=== PATIENT | female | born 1955 | race Caucasian/White ===

== ENCOUNTER 2024-05-20 | Outpatient (CLI) | payer MEDICARE, MEDICAID | END 2024-05-20 23:59 | disposition critical access hospital (66) | LOC: EMS | DX: R42 Dizziness and giddiness (principal); R44.1 Visual hallucinations; I95.9 Hypotension, unspecified | CPT/HCPCS: A0425; A0429 ==

== ENCOUNTER 2024-05-20 00:21 | Emergency (ER) | payer MEDICARE, MEDICAID ==
[2024-05-20 00:46] LABS: BASOPHILS % (AUTO) 0.5 %; EOSINOPHILS # (AUTO) 0.1 10^3/uL (0.0-0.7); EOSINOPHILS % (AUTO) 0.8 %; HCT - HEMATOCRIT 28.5 % (37.0-47.0); HGB - HEMOGLOBIN 8.8 g/dL (12.0-16.0); LYMPHOCYTES # (AUTO) 2.6 10^3/uL (1.5-3.5); LYMPHOCYTES % (AUTO) 39.8 %; MEAN CORPUSCULAR HEMOGLOBIN 28.9 pg (27.0-31.0); MEAN CORPUSCULAR HGB CONC 30.9 g/dL (32.0-36.0); MEAN CORPUSCULAR VOLUME 93.8 fL (81.0-99.0); MEAN PLATELET VOLUME 8.7 fL (7.9-10.8); MONOCYTES # (AUTO) 0.7 10^3/uL (0.0-1.0); MONOCYTES % (AUTO) 10.6 %; NEUTROPHILS # (AUTO) 3.1 10^3/uL (1.5-6.6); NEUTROPHILS % (AUTO) 47.8 %; PLT - PLATELET COUNT 300 10^3/uL (130-450); RED BLOOD COUNT 3.04 10^6/uL (4.20-5.40); RED CELL DISTRIBUTION WIDTH 22.5 % (12.0-15.0); WHITE BLOOD COUNT 6.5 x10^3/uL (4.8-10.8)
[2024-05-20 00:51] LABS: SLIDE REVIEW? Indicated
--- NOTE | 2024-05-20 00:55 | ED Physician Documentation ---
History of Present Illness - Stated complaint Stated Complaint: HYPOTENSION - Chief complaint Chief Complaint: Cardiac - History obtained from History obtained from: Patient - Additonal information Additional information: HPI from patient. Patient has been at [facility] x 4 days (admitted 05/16/24) for treatment of alcoholism/withdrawal. Patient tells me she drinks 2 "tallboys" (beer) per day for at least the past several weeks. She denies drug use. She was sent to ED from [facility] due to episode of lightheadedness and near-syncope. EMS reports that patient was hypotensive in field and en route (80s SBP) as well as bradycardic (30s-40s BPM) but AAOx3 by the time of their arrival. Patient tells me she did not fall nor sustained injury, but she thinks she might have briefly had LOC tonight after the onset of lightheadedness. By the time of this H+P, she is in NAD and asymptomatic; patient tells me "I feel fine, there's nothing wrong with me". She denies chest pain, palpitations, dyspnea. Denies n/v. No report of seizure activity tonight. PD PAST MEDICAL HISTORY - Past Medical History Past Medical History: Yes - Past Surgical History Past Surgical History: No - Present Medications Home Medications: Ambulatory Orders Medication Instructions Recorded Confirmed Folic Acid 1 mg PO DAILY 05/20/24 05/20/24 Gabapentin [Neurontin] 300 mg PO TID 05/20/24 05/20/24 LORazepam [Lorazepam] 1 mg PO BID 05/20/24 05/20/24 Levetiracetam [Keppra] 500 mg PO BID 05/20/24 05/20/24 Mv/Fe/FA/Om3/FSH/Lycop/Lut/Aditi 1 each PO DAILY 05/20/24 05/20/24 [Multia Daily Multivitamin] Trazodone HCl 100 mg PO HS 05/20/24 05/20/24 buPROPion HCL [Bupropion Xl] 300 mg PO DAILY 05/20/24 05/20/24 cloNIDine HCL [Clonidine HCl] 0.6 mg PO BID 05/20/24 05/20/24 - Allergies Allergies/Adverse Reactions: Allergies Allergy/AdvReac Type Severity Reaction Status Date / Time chocolate Allergy Unknown Verified 05/20/24 00:40 lisinopril Allergy Unknown Verified 05/20/24 00:40 - Social History Does the pt smoke?: No Smoking Status: Never smoker Does the pt drink ETOH?: Yes PD ED PE NORMAL - Vitals Vital signs reviewed: Yes - General General: Alert and oriented X 3, No acute distress, Well developed/nourished, Other (asleep when I enter the room, awakens to verbal stimulus, NAD and AAOx3) - HEENT HEENT: Atraumatic, PERRL, EOMI, Pharynx benign - Neck Neck: Supple, no meningeal sign, No bony TTP - Cardiac Cardiac: RRR, No murmur - Respiratory Respiratory: No respiratory distress, Clear bilaterally - Abdomen Abdomen: Soft, Non tender - Derm Derm: Normal color, Warm and dry - Extremities Extremities: No edema - Neuro Neuro: Alert and oriented X 3, 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, No motor deficit, No sensory deficit, Normal speech Eye Opening: Spontaneous Motor: Obeys Commands Verbal: Oriented GCS Score: 15 Results - Vitals Vitals: Vital Signs - 24 hr 05/20/24 05/20/24 05/20/24 11:00 12:20 13:12 Temperature Heart Rate 61 51 L 53 L Respiratory 17 15 14 Rate Blood Pressure 131/93 H 142/75 H 154/85 H O2 Saturation 97 100 100 05/20/24 05/20/24 05/20/24 15:00 17:00 17:37 Temperature Heart Rate 51 L 45 L Respiratory 16 15 Rate Blood Pressure 152/86 H 204/98 H 184/97 H O2 Saturation 99 100 05/20/24 17:39 Temperature 36.5 C Heart Rate 45 L Respiratory 15 Rate Blood Pressure 184/97 H O2 Saturation 100 Oxygen O2 Source Room air - EKG (time done) No standard instances EKG releavant findings:: EKG personally interpreted by author of this note. Relevant findings are: Rate: Rate (enter#) (37) Rhythm: Sinus bradycardia [place]: Normal Intervals: Normal AR Ischemia: Normal ST segments - Labs Labs: Laboratory Tests 05/20/24 05/20/24 05/20/24 00:41 00:41 07:23 WBC 6.5 RBC 3.04 L Hgb 8.8 L 9.8 L Hct 28.5 L 31.0 L MCV 93.8 MCH 28.9 MCHC 30.9 L RDW 22.5 H Plt Count 300 MPV 8.7 Neut # (Auto) 3.1 Lymph # (Auto) 2.6 [place] # (Auto) 0.7 Eos # (Auto) 0.1 Baso # (Auto) 0.0 Absolute Nucleated RBC 0.00 Nucleated RBC % 0.0 Manual Slide Review Indicated Platelet Estimate NORMAL (130-450,000) RBC Morph Micro Appear 1+ POLYCHROMASIA Sodium 134 L Potassium 3.7 Chloride 100 L Carbon Dioxide 27 Anion Gap 7.0 BUN 21 H Creatinine 1.2 Estimated GFR (MDRD) 45 L Glucose 110 H Calcium 8.7 Total Bilirubin 0.2 AST 14 ALT 6 L Alkaline Phosphatase 42 Troponin I High Sens 8.1 Total Protein 6.4 Albumin 3.2 Globulin 3.2 Albumin/Globulin Ratio 1.0 Lipase 13 Ethyl Alcohol < 10.0 PD Medical Decision Making - ED course Complexity details: reviewed results, re-evaluated patient, considered differential, d/w patient ED course: Mildly low hgb/hct (hgb 8.8) on otherwise unremarkable CBC. Mildly elevated BUN (21) with normal creatinine (1.2) on otherwise unremarkable ER abdominal panel (including normal LFTs/lipase). Normal hs-cTn. No previous results available for comparative purposes. She was reportedly hypotensive in field per EMS, but is hypertensive throughout ED stay (with brief exception of single normotensive reading after given losartan). She is bradycardic throughout ED stay on my shift. Patient tells me the hypertension is not a new problem and that she takes clonidine for both anxiety as well as HTN; she says she used to take losartan and preferred that medication for HTN (compared to clonidine, which she feels gives her some unpleasant side effects). She tells me that she has been told her pulse tends to be low but does not recall if her pulse rate during this ED stay is comparable to her baseline. Similarly, she thinks she has been told before by her PCP that she has low h/h, but she cannot recall any previous results and when I d/w her the h/h tonight, it does not jog any memory of previous results. She denies recent blood in stool, dark tarry stool. Results d/w patient. She is eager to return to [facility]. Given 25mg PO losartan for her hypertensive readings in ED and this resulted in brief normal BP before returning to hypertensive readings. [facility] is contacted by ED RN but they say they cannot take patient back unless she has sustained heart rates above 50 bpm. 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 She is not hypotensive nor symptomatic with the bradycardia/high blood pressures during my shift. There are no indications for inpatient treatment from medical standpoint and not exhibiting signs/symptoms of alcohol withdrawal at this time. She lives in [place] and says she does not know what to do next given [facility] will not take her back and she does not know how she would get back home at this time. She is held overnight in ED and care of patient is turned over to oncoming ED physician (Dr. Petty) in AM for possible SW consult. Departure - Departure Disposition: 01 Home, Self Care Clinical Impression: Alcohol withdrawal Qualifiers: Complication of substance-induced condition: with unspecified complication Qualified Code(s): F10.939 - Alcohol use, unspecified with withdrawal, unspecified Condition: Stable Instructions: ED Withdrawal Alcohol Follow-Up: Your, doctor [Other] Comments: Conchis, today it looks like you ended up in our emergency department with the terminal phases of alcohol withdrawal. This usually occurs on day #4 of abstinence. The expectation is that you should have further improvement over the next several days as long as you abstain from alcohol. Forms: PCP List Discharge Date/Time: 05/20/24 18:08
[2024-05-20 01:05] LABS: ALBUMIN 3.2 g/dL (3.2-5.5); ALKALINE PHOSPHATASE 42 IU/L (42-121); ALT ALANINE AMINOTRANSFERASE 6 IU/L (10-60); AST ASPARTATE AMINOTRANSFERASE 14 IU/L (10-42); BILIRUBIN,TOTAL 0.2 mg/dL (0.2-1.0); BUN - BLOOD UREA NITROGEN 21 mg/dL (6-20); CALCIUM 8.7 mg/dL (8.5-10.3); CARBON DIOXIDE - CO2 27 mmol/L (21-32); CHLORIDE 100 mmol/L (101-111); CREATININE 1.2 mg/dL (0.6-1.3); GFR - MDRD 45 (>89); GLUCOSE 110 mg/dL (74-104); LIPASE 13 U/L (11-82); POTASSIUM 3.7 mmol/L (3.5-4.5); SODIUM 134 mmol/L (135-145); TOTAL PROTEIN 6.4 g/dL (6.4-8.9)
[2024-05-20 01:06] LABS: ETOH - ETHANOL < 10.0 mg/dL
[2024-05-20 01:07] LABS: TROPONIN I HIGH SENSITIVITY 8.1 ng/L (2.3-14.8)
[2024-05-20 01:15] LABS: PLATELET ESTIMATE, MANUAL NORMAL (130-450,000) (NORMAL)
[2024-05-20] MEDS: LOSARTAN 50 MG TABLET PO SCH (03:53)
[2024-05-20] MEDS: cloNIDine 0.1 MG TABLET PO STA (05:27)
[2024-05-20 07:26] LABS: HGB - HEMOGLOBIN 9.8 g/dL (12.0-16.0)
[2024-05-20] MEDS: THIAMINE INJ 100 MG, MAGNESIUM SULFATE 2 GM, MULTIVITAMIN 10 ML, FOLIC ACID INJ 1 MG in... IV STA (08:05)
[2024-05-20] MEDS ORDERED: LOSARTAN 50 MG TABLET PO SCH (09:00)
[2024-05-20] MEDS: PANTOPRAZOLE 40 MG TABLET PO STA (13:44)
[2024-05-20] MEDS: SUCRALFATE 1 GM/10 ML UDC PO STA (13:45)
[2024-05-20 17:23] VITALS: O2SAT 100
[2024-05-20 17:43] VITALS: BP 184/97
--- NOTE | 2024-05-20 20:27 | ED Physician Documentation ---
ED Addendum - Addendum Addendum: 05/20/24 20:24 Conchis Waite was left in my care at shift change on day #4 of alcohol withdrawal. She was at [facility] and she was sent to the emergency department with bradycardia, hypotension and decreased responsiveness. The patient continued to have some bradycardia and she did not have hypotension while she was here in the emergency department. We provided some hydration with a banana bag and provided her antihypertensive medications that she was hypertensive here in the emergency d [facility]. We consulted social work as patient did not have a ride home. They were able to find resources for the patient to get back to [place]. The patient felt well at discharge and felt that she was through with the alcohol withdrawal. 05/20/24 20:25 Departure - Departure Disposition: 01 Home, Self Care Clinical Impression: Alcohol withdrawal Qualifiers: Complication of substance-induced condition: with unspecified complication Qualified Code(s): F10.939 - Alcohol use, unspecified with withdrawal, unspecified Condition: Stable Instructions: ED Withdrawal Alcohol Follow-Up: Your, doctor [Other] Comments: Conchis, today it looks like you ended up in our emergency department with the terminal phases of alcohol withdrawal. This usually occurs on day #4 of abstinence. The expectation is that you should have further improvement over the next several days as long as you abstain from alcohol. Forms: PCP List Discharge Date/Time: 05/20/24 18:08
== END 2024-05-20 18:08 | disposition home or self-care (01) ==
LOC: ED 00:21
DX: F10.939 Alcohol use, unspecified with withdrawal, unspecified (principal); Y90.0 Blood alcohol level of less than 20 mg/100 ml; R00.1 Bradycardia, unspecified; I10 Essential (primary) hypertension; Z79.899 Other long term (current) drug therapy
CPT/HCPCS: 36415; 80053; 83690; 84484; 85014; 85018; 85025; 93005; 96365; 99284; A9270; G0480; J3411; 82077